=== PATIENT | female | born 1945 | race Caucasian/White ===

== ENCOUNTER 2025-01-30 11:56 | Emergency (ER) | payer MEDICARE ==
[~2025-01-30] VITALS: Ht 144.8 cm; Wt 90.9 kg
[2025-01-30 13:04] LABS: VENOUS BASE EXCESS 3.2 (-2.0-2.0); VENOUS HCO3 32.2 MMOL/L (23.0-27.0); VENOUS O2 SATURATION 63.3 % (60.0-80.0); VENOUS PARTIAL PRESSURE CO2 72.5 mmHg (38.0-50.0); VENOUS PARTIAL PRESSURE O2 36.6 mmHg (30.0-50.0); VENOUS PH 7.265 UNITS (7.330-7.430); VENOUS STANDARD HCO3 26.5 MMOL/L; VENOUS TOTAL CO2 34.4 MMOL/L (24.0-28.0)
[2025-01-30 13:11] LABS: BASO # 0.1 10^3/uL (0.0-0.2); BASO % 0.5 % (0.0-1.0); EOS # 0.1 10^3/uL (0.0-0.5); EOS % 0.8 % (0.0-3.0); HEMATOCRIT 36.5 % (36.0-47.0); HEMOGLOBIN 11.8 g/dl (12.0-15.5); LYMPH # 1.6 10^3/uL (1.5-5.0); LYMPH % 17.4 % (24.0-44.0); MEAN CORPUSCULAR HEMOGLOBIN 32.1 pg (27.0-33.0); MEAN CORPUSCULAR HGB CONC 32.3 g/dl (32.0-36.5); MEAN CORPUSCULAR VOLUME 99.2 fl (80.0-96.0); MONO # 0.6 10^3/uL (0.0-0.8); MONO % 6.9 % (2.0-8.0); NEUTROPHILS # 6.3 10^3/uL (1.5-8.5); NEUTROPHILS % 67.8 % (36.0-66.0); PLATELET COUNT, AUTOMATED 128 10^3/uL (150-450); RED BLOOD COUNT 3.68 10^6/uL (4.00-5.40); WHITE BLOOD COUNT 9.3 10^3/uL (4.0-10.0)
[2025-01-30 13:39] LABS: CK-MB VALUE MASS < 1.0 NG/ML (<3.6)
[2025-01-30 14:18] LABS: CPK CREATINE PHOSPHOKINASE 34 U/L (34-145); MB/CK RELATIVE INDEX 2.94 (< OR =4)
[2025-01-30 14:19] LABS: ALBUMIN 3.8 G/DL (3.2-5.2); ALKALINE PHOSPHATASE 120 U/L (35-104); ALT/SGPT 21 U/L (7.0-40); AST/SGOT 15 U/L (<34); BILIRUBIN,DIRECT 0.2 MG/DL (<0.4); BILIRUBIN,TOTAL 0.4 MG/DL (0.3-1.2); BLOOD UREA NITROGEN 16 MG/DL (9-23); CARBON DIOXIDE LEVEL 35 MMOL/L (20-31); CHLORIDE LEVEL 105 MMOL/L (98-107); CREATININE FOR GFR 0.76 MG/DL (0.55-1.30); GLOMERULAR FILTRATION RATE 80.2 (>39); GLUCOSE, FASTING 93 MG/DL (74-106); POTASSIUM SERUM 4.3 MMOL/L (3.5-5.1); SODIUM LEVEL 146 MMOL/L (136-145); TOTAL PROTEIN 6.6 G/DL (5.7-8.2)
[2025-01-30] MEDS: methylPREDNISolone 125MG 2ML VIAL IV ONE (16:53)
[2025-01-30] MEDS: IPRATROPIUM 0.5MG/ALBUTEROL 2.5MG INH SOL UD 3ML NEB PRN (17:08)
[2025-01-30] MEDS ORDERED: ALBU10.7 INH (18:25)
[2025-01-30] MEDS ORDERED: TRAM50TA2 PO (18:25)
[2025-01-30] MEDS ORDERED: FAMO1TAB11 PO (18:25)
[2025-01-30] MEDS ORDERED: FLUT1BLS8 INH (18:25)
[2025-01-30] MEDS ORDERED: FURO20TA2 PO (18:25)
[2025-01-30] MEDS ORDERED: AMIT75TA PO (18:25)
[2025-01-30] MEDS ORDERED: LISI5TAB11 PO (18:25)
[2025-01-30] MEDS ORDERED: ZOLO100T PO (18:25)
[2025-01-30] MEDS ORDERED: HOME MED LIST COMPLETE! XX SCH (18:25)
[2025-01-30] MEDS ORDERED: PANT40TA29 PO (18:25)
[2025-01-30 18:51] VITALS: O2SAT 96
[2025-01-30 19:04] LABS: ABG BASE EXCESS 2.1 (-2.0-2.0); ABG HCO3 26.7 MMOL/L (22.0-26.0); ABG O2 SATURATION 97.1 % (95.0-99.0); ABG PARTIAL PRESSURE CO2 41.4 mmHg (35.0-45.0); ABG PARTIAL PRESSURE O2 99.2 mmHg (75.0-100.0); ABG STANDARD HCO3 26.3 MMOL/L. (22.0-26.0); ABG TOTAL CO2 27.9 MMOL/L (23.0-31.0); ABG pH (ARTERIAL) 7.427 UNITS (7.350-7.450)
[2025-01-30] MEDS ORDERED: AZIT-12 PO (19:18)
[2025-01-30] MEDS ORDERED: PRED20TA PO (19:18)
[2025-01-30 19:26] VITALS: BP 135/72; TEMP 97.5; O2SAT 97
== END 2025-01-30 19:33 | disposition home or self-care (01) ==
LOC: M ED 11:56
DX: J44.1 Chronic obstructive pulmonary disease with (acute) exacerbation (principal); G47.33 Obstructive sleep apnea (adult) (pediatric); R94.31 Abnormal electrocardiogram [ECG] [EKG]; Z88.5 Allergy status to narcotic agent; Z88.8 Allergy status to other drugs, medicaments and biological substances; Z79.51 Long term (current) use of inhaled steroids; Z79.52 Long term (current) use of systemic steroids; Z79.899 Other long term (current) drug therapy
CPT/HCPCS: 71046; 80048; 80076; 82550; 82553; 82803; 83605; 83880; 84484; 85025; 87486; 87581; 87633; 87798; 93005; 93041; 94760; 96374; 99285; J2919